=== PATIENT | male | born 1990 | race Caucasian/White ===

== ENCOUNTER → 2019-12-18 | Outpatient (CLI) | payer BC | LOC: RAD 10:00 | DX: R22.2 Localized swelling, mass and lump, trunk (principal) ==

== ENCOUNTER 2021-10-21 18:17 | Emergency (ER) | payer OTHER, BC ==
[~2021-10-21] VITALS: Ht 172.7 cm; Wt 79.5 kg
[2021-10-21 18:22] VITALS: BP 138/80
[2021-10-21] MEDS ORDERED: LAMOTRIGINE150 MG PO (18:30)
[2021-10-21] MEDS ORDERED: VYVANSE40 MG PO (18:30)
== END 2021-10-21 21:16 | disposition home or self-care (01) ==
LOC: ED 18:17
DX: S00.83XA Contusion of other part of head, initial encounter (principal); F17.210 Nicotine dependence, cigarettes, uncomplicated; V49.9XXA Car occupant (driver) (passenger) injured in unspecified traffic accident, initial encounter